=== PATIENT | female | born 1995 | race Caucasian/White ===

== ENCOUNTER 2022-01-11 06:08 | Emergency (ER) | payer OTHER ==
[~2022-01-11] VITALS: Ht 165.1 cm; Wt 112.9 kg
[2022-01-11 06:22] VITALS: BP 128/69
== END 2022-01-11 08:24 | disposition home or self-care (01) ==
LOC: ER 06:08
DX: H61.22 Impacted cerumen, left ear (principal)
CPT/HCPCS: 81025; 99282